=== PATIENT | female | born 1960 | race Caucasian/White ===

== ENCOUNTER 2018-02-25 12:12 | Emergency (ER) | payer SELFPAY ==
[2018-02-25] MEDS ORDERED: NITROGLYCERIN 0.4 MG TAB SL PRN (12:19)
[2018-02-25] MEDS ORDERED: ASPIRIN 81 MG CHEWABLE CTB PO STA (12:19)
[2018-02-25] MEDS ORDERED: SODIUM CHLORIDE 0.9% FLUSH 10 ML SOL IV PRN (12:19)
[2018-02-25 12:25] LABS: BASOPHILS % (AUTO) 2 % (0-3); EOSINOPHILS % (AUTO) 15 % (0-9); HEMATOCRIT 39 % (35-47); HEMOGLOBIN 12.8 gm/dl (12.0-15.5); LYMPHOCYTES % (AUTO) 30.9 % (10-50); MEAN CORPUSCULAR HEMOGLOBIN 29.7 pg (27.0-32.0); MEAN CORPUSCULAR HGB CONC 32.9 gm/dl (32.0-36.0); MEAN CORPUSCULAR VOLUME 90 fL (81-99); NEUTROPHILS % (AUTO) 46.4 % (37-80)
[2018-02-25] MEDS ORDERED: ASPIRIN 81 MG CHEWABLE CTB ONE (12:28)
[2018-02-25] MEDS ORDERED: NITROGLYCERIN 0.4 MG TAB SL ONE (12:28)
[2018-02-25 12:34] VITALS: TEMP 97.9
[2018-02-25 12:41] LABS: BLOOD UREA NITROGEN 33 mg/dl (7-18); CALCIUM 9.6 mg/dl (8.5-10.1); CARBON DIOXIDE 28.8 mEq/L (21-32); CHLORIDE 103 mMol/L (98-107); CREATINE KINASE 99 U/L (26-192); CREATININE 1.45 mg/dl (0.60-1.00); GLUCOSE 103 mg/dl (74-106); POTASSIUM 4.2 mMol/L (3.5-5.1); SODIUM 139 mMol/L (136-145); TROP I < 0.017 ng/ml (0.000-0.056)
[2018-02-25] MEDS ORDERED: SODIUM CHLORIDE 0.9% 1000ML 1,000 ML IV ONE (12:48)
[2018-02-25] MEDS ORDERED: LIDOCAINE HCL 2% (VISCOUS) 20 ML SOL MT ONE (12:48)
[2018-02-25] MEDS ORDERED: ALUMINUM/MAGNESIUM 30 ML SUS PO ONE (12:48)
[2018-02-25] MEDS ORDERED: LIDOCAINE HCL 2% (VISCOUS) 20 ML SOL ONE (12:58)
[2018-02-25] MEDS ORDERED: ALUMINUM/MAGNESIUM 30 ML SUS ONE (12:58)
[2018-02-25 14:30] VITALS: O2SAT 97
[2018-02-25 14:35] VITALS: BP 136/84; PULSE 59; RESP 18
== END 2018-02-25 14:24 | disposition home or self-care (01) | DRG 392 ==
LOC: ED 12:12
DX: K21.9 Gastro-esophageal reflux disease without esophagitis (principal); N17.9 Acute kidney failure, unspecified
CPT/HCPCS: 71045; 80048; 82550; 84484; 85025; 93005; 96365; 99283; 99285; A9270-GY